=== PATIENT | female | born 1945 | race Caucasian/White ===

== ENCOUNTER 2019-08-16 11:44 | Day surgery (SDC) | payer MEDICARE, OTHER ==
[~2019-08-16 11:44] MED LIST: CHONDR SU A NA/HYALUR INTRAOC KIT (SURGICARE) ONE; EPINEPHRINE INJ/PF 1 MG/1 ML AMPULE ONE; LIDOCAINE 1%/PHENYLEPHRINE 1.5% 1 ML VIAL ONE; TOBRAMYCIN SULFATE/DEXAMETH OPH OINTMENT 3.5 GM ONE
[2019-08-16] MEDS: TROPICAMIDE 1% OPH SOLN 15 ML OS PRN ×3 (12:12→12:33)
[2019-08-16] MEDS: TETRACAINE HCL 0.5% OPH SOLN 4 ML OS PRN ×3 (12:12→13:04)
[2019-08-16] MEDS: CYCLOPENTOLATE 0.2%/PHENYLEPHRINE 1% OPH SOLN 2 ML OS PRN ×3 (12:13→12:33)
[2019-08-16] MEDS: BESIFLOXACIN HCL 0.6% OPH SUSP 5 ML BOTTLE OS PRN ×4 (12:13→13:18)
[2019-08-16] MEDS ORDERED: FENTANYL CITRATE INJ/PF 100 MCG/2 ML AMPUL ONE (12:39)
[2019-08-16] MEDS ORDERED: MIDAZOLAM 2 MG/2 ML INJ ONE (12:39)
[2019-08-16] MEDS: DORZOLAMIDE HCL 2%/TIMOLOL MALEAT 0.5% OPH SOLN 10 ML OS PRN ×2 (13:18)
== END 2019-08-16 14:03 | disposition home or self-care (01) ==
LOC: SC 11:44
PROVIDERS: ATTEND Ophthalmology
DX: H25.12 Age-related nuclear cataract, left eye (principal); J45.909 Unspecified asthma, uncomplicated; I10 Essential (primary) hypertension; E03.9 Hypothyroidism, unspecified; Z79.51 Long term (current) use of inhaled steroids; Z79.899 Other long term (current) drug therapy
CPT/HCPCS: 66984; V2788; J2250; J3490 ×3; J0171; J3010; J2370; 142

== ENCOUNTER 2019-08-30 11:42 | Day surgery (SDC) | payer MEDICARE, OTHER ==
[~2019-08-30 11:42] MED LIST changes: -TOBRAMYCIN SULFATE/DEXAMETH OPH OINTMENT 3.5 GM ONE
[2019-08-30] MEDS: TROPICAMIDE 1% OPH SOLN 15 ML OD PRN ×3 (12:20→12:45)
[2019-08-30] MEDS: BESIFLOXACIN HCL 0.6% OPH SUSP 5 ML BOTTLE OD PRN ×5 (12:20→13:09)
[2019-08-30] MEDS: CYCLOPENTOLATE 0.2%/PHENYLEPHRINE 1% OPH SOLN 2 ML OD PRN ×3 (12:20→12:45)
[2019-08-30] MEDS: TETRACAINE HCL 0.5% OPH SOLN 4 ML OD PRN ×3 (12:20→12:52)
[2019-08-30] MEDS ORDERED: FENTANYL CITRATE INJ/PF 100 MCG/2 ML AMPUL ONE (12:28)
[2019-08-30] MEDS ORDERED: MIDAZOLAM 2 MG/2 ML INJ ONE (12:28)
[2019-08-30] MEDS: TOBRAMYCIN SULFATE/DEXAMETH OPH OINTMENT 3.5 GM ONE ×3 (13:08→13:09)
[2019-08-30] MEDS: DORZOLAMIDE HCL 2%/TIMOLOL MALEAT 0.5% OPH SOLN 10 ML OD PRN ×3 (13:08→13:09)
== END 2019-08-30 14:00 | disposition home or self-care (01) ==
LOC: SC 11:42
PROVIDERS: ATTEND Ophthalmology
DX: H25.11 Age-related nuclear cataract, right eye (principal); Z98.42 Cataract extraction status, left eye; I10 Essential (primary) hypertension; E03.9 Hypothyroidism, unspecified; J45.909 Unspecified asthma, uncomplicated; Z79.51 Long term (current) use of inhaled steroids; Z79.899 Other long term (current) drug therapy
CPT/HCPCS: 66984; V2788; J2250; J3490 ×3; J0171; J3010; J2370; 142